=== PATIENT | female | born 1955 | race Caucasian/White ===

== ENCOUNTER 2023-09-11 10:43 | Emergency (ER) | payer MEDICARE, OTHER, SELFPAY ==
[2023-09-11 10:45] VITALS: BP 154/102
--- NOTE | 2023-09-11 12:28 | ED.GENMED ---
History of Present Illness
General
Chief Complaint: Fall
Source: patient
Exam Limitations: none
Time Seen by Provider: 09/11/23 11:33
Nursing documentation reviewed up to this point in time: agreed with
Travel History
Have you had any contact with someone who has COVID-19?: No
Do you have any symptoms of coronavirus? Fever > 100 degrees, chills, cough, shortness of breath, sore throat, loss of taste or smell, muscle aches, or headache?: No
History of Present Illness
History of Present Illness:
Patient is a 68-year-old female who presents here for evaluation. On starting 4 days ago she describes mechanical trip and fall in the garage. She however does not remember the exact fall. Her son caught on camera and reports she got up after the
initial fall but then fell right back again. She does remember hitting her face at some point. She was assisted up by family was having difficulty remembering things. She was having right shoulder pain and was going to see orthopedics today but
came to the ER today for evaluation of all symptoms. She complains of mild headache feels a little foggy denies any nausea vomiting. She complains of bruising to her face worse on the left side at times she reports mild anterior chest soreness
when she lays back but she denies any shortness of breath.
Past History
Past History
ED Past Medical History: GERD, HTN and Psychiatric (a/d)
ED Past Surgical History: Bowel resection and Gynecological
Social History
Tobacco: Non-smoker
Personal:
Living: with family
Review of Systems
Review of Systems
Allergies reviewed?: Yes
All Other Systems: ROS reviewed and negative except as documented in HPI and ROS
Constitutional: Reports no symptoms
EENT: Reports no symptoms
Respiratory: Reports no symptoms
Cardiac: Reports no symptoms
ABD/GI: Reports no symptoms
Musculoskeletal: Reports other (right shoulder pain)
Skin: Reports no symptoms
Neurological: Reports headache
Hematologic/Lymphatic: Reports no symptoms
Psychiatric: Reports no symptoms
Phy Exam
General Physical Exam
General Presentation: no apparent distress
General age: appears stated age
General Skin: warm and dry
General Habitus: normal
General Mental: alert
General Hydration: appears well hydrated
ENT Exam
ENT Exam: EOMI
Eye Exam
Eye Exam: PERRL and EOMI
Eye Exam General: PERRL: bilateral and EOM intact: bilateral
Pupil Exam: Bilateral: round and reactive
Cardiovascular Exam
Cardiovascular Exam: regular rate/rhythm, no murmur and normal peripheral pulses
Pulmonary Exam
Pulmonary Exam: lungs clear and no respiratory distress
Neurological Exam
Neurological Exam: alert and oriented x3
Musculoskeletal Exam
Musculoskeletal Exam: full ROM and other (+ ecchymosis to face around nose and left eye )
Skin Exam
Skin Exam: normal color and warm/dry
Psychiatric Exam
Psychiatric Exam: normal mood/affect
Course
Orders/Labs/Results
Orders:
Orders
09/11/23 12:27
CT Facial Bones W/o Iv Contras Urgent
Comment:
Reason For Exam: trauma
CT Head W/o Iv Contrast Urgent
Comment:
Reason For Exam: trauma
09/11/23 12:28
Chest [CR Chest - 2 Views ] Urgent
Comment:
Reason For Exam: trauma
Shoulder, Right, Trauma [CR Shoulder, Trauma - Right] Urgent
Comment:
Reason For Exam: trauma
09/11/23 14:48
Sling Right-Treatment ONCE
Vital Signs
Initial and Last Documented VS:
Initial Vital Signs
Temp Pulse Resp BP Pulse Ox
98.0 F 72 18 154/102 98
09/11/23 10:45 09/11/23 10:45 09/11/23 10:45 09/11/23 10:45 09/11/23 10:45
Last Documented Vital Signs
Temp Pulse Resp BP Pulse Ox
98.0 F 85 20 120/85 100
09/11/23 10:45 09/11/23 15:03 09/11/23 13:37 09/11/23 15:03 09/11/23 13:37
MDM/Problems Addressed
Differential Diagnosis Includes:
Not limited to head injury intracranial hemorrhage, shoulder sprain versus fracture fracture facial bone versus contusion
MDM/Problems Addressed:
Symptoms are consistent with contusions /shoulder sprain strain.
no acute findings on imaging including CAT scan head and facial bones
*Radiology
Radiology exam reviewed: radiology read reviewed
*Critical Care Note
Total Time (30-74mins, 75-104mins- exclusive of procedures): Not Applicable
ED Attending Note
-
Portions of this chart may have been created with voice recognition software.� Occasional wrong word or��sound alike� substitutions may have occurred due to the inherent limitations of voice recognition software.
Discharge Plan
Departure
Patient Disposition: Home (Routine Discharge)
Date of Disposition: 09/11/23
Time of Disposition: 14:48
Patient with high blood pressure during this ER visit?: Yes
Condition: Fair
Covid-19: Not Applicable
Discharge Problem:
Right shoulder strain, Head injury, facial contusion
Instructions: Head Injury in Adults (DC), Contusion (DC), Shoulder Pain ED
Prescriptions:
No Action
esomeprazole magnesium [Nexium] 40 MG capsule,delayed release(DR/EC)
40 mg PO DAILY
losartan [Cozaar] 25 MG tablet
25 mg PO DAILY
Lactobacillus acidophilus [Acidophilus] 1 CAP capsule
1 cap PO DAILY
azithromycin 250 MG tablet
250 mg PO DAILY
promethazine-codeine 5 ML syrup
5 ml PO Q4HPRN PRN (Reason: cough)
escitalopram oxalate 10 MG tablet
10 mg PO HS
prednisone 10 MG tablet
10 mg PO .TAPER Qty: 30 0RF
Rx Instructions:
Take 40mg daily x3days, 30mg daily x3days,
20mg daily x3days, 10mg daily x3days.
hydrocodone-homatropine [Hycodan (with homatropine)] 5 ML syrup
5 ml PO Q4HPRN PRN (Reason: cough) Qty: 120 0RF
methylprednisolone [Medrol (Efren)] 4 mg tablets,dose pack
See Rx Instructions .ROUTE .COMPLEX Qty: 21 0RF
Rx Instructions:
orally per package directions
Referrals:
Bryan Adame MD [Family Provider] -
Venu Grant MD [Active] -
Activity Restrictions/Additional Instructions:
Wear sling for support as discussed right shoulder however remove several times a day and do gentle range of motion exercises. You may take ibuprofen every 8 hours for discomfort. Follow-up with orthopedics in the next several days for
reevaluation of shoulder pain. Also as discussed your CAT scan of your head and facial bones were negative.
Return if any worsening of symptoms.
Interventions
Interventions:
*Risk Screen - Suicide Last Done: 09/11/23 10:49
*General Assessment Last Done: 09/11/23 10:49
*Neglect/Abuse Screening Last Done: 09/11/23 10:49
ED- Fall Risk Assessment Last Done: 09/11/23 11:49
*ED COVID-19 Vaccine History Last Done: 09/11/23 10:49
*Nursing Disposition Last Done: 09/11/23 15:03
ED-Musculoskeletal Assessment Last Done: 09/11/23 11:49
ED- Neurological Assessment Last Done: 09/11/23 11:49
ED-Skin Assessment Last Done: 09/11/23 11:49
Discharge Date and Time
Discharge Date/Time: 09/11/23 15:04
Print Language: [id number]
[2023-09-11 13:37] VITALS: BP 142/79
[2023-09-11 15:02] VITALS: BP 120/85
[2023-09-11 15:03] VITALS: BP 120/85
== END 2023-09-11 15:04 | disposition home or self-care (01) ==
LOC: EMR 10:43
PROVIDERS: EMERGENCY PHYSICIAN Emergency Medicine; FAMILY PHYSICIAN Internal Medicine Geriatric Medicine
DX: S00.83XA Contusion of other part of head, initial encounter (principal); S46.011A Strain of muscle(s) and tendon(s) of the rotator cuff of right shoulder, initial encounter; W01.0XXA Fall on same level from slipping, tripping and stumbling without subsequent striking against object, initial encounter; I10 Essential (primary) hypertension
CPT/HCPCS: 99284; 70450; 70486; 71046; 73030

== ENCOUNTER → 2023-10-03 16:12 | Outpatient (REF) | payer MEDICARE, OTHER, SELFPAY | LOC: MRI 3T 16:12 | PROVIDERS: ATTENDING PHYSICIAN Orthopaedic Surgery; FAMILY PHYSICIAN Internal Medicine Geriatric Medicine | DX: M25.511 Pain in right shoulder (principal) | CPT/HCPCS: 73221 ==

== ENCOUNTER → 2023-12-12 13:06 | Outpatient (REF) | payer MEDICARE, OTHER, SELFPAY | LOC: RAD 13:06 | PROVIDERS: ATTENDING PHYSICIAN Internal Medicine Critical Care Medicine; FAMILY PHYSICIAN Internal Medicine Geriatric Medicine | DX: R05.3 Chronic cough (principal) | CPT/HCPCS: 71046 ==

== ENCOUNTER 2024-10-12 06:18 | Day surgery (SDC) | payer MEDICARE, OTHER, SELFPAY | END 2024-10-12 13:09 | disposition home or self-care (01) | LOC: GI 06:18 | PROVIDERS: ATTENDING PHYSICIAN Internal Medicine Gastroenterology | DX: Z12.11 Encounter for screening for malignant neoplasm of colon (principal); K31.7 Polyp of stomach and duodenum; K57.30 Diverticulosis of large intestine without perforation or abscess without bleeding; K64.8 Other hemorrhoids; Z98.0 Intestinal bypass and anastomosis status; R12 Heartburn | CPT/HCPCS: 43239; G0121; 88305 ==

== ENCOUNTER → 2025-02-09 13:18 | Outpatient (REF) | payer MEDICARE, SELFPAY ==
--- NOTE | 2025-02-09 15:25 | CARDSERVLU ---
Stress Echocardiogram with Lumason completed after protocol screening completed. Allergies verified.
Patent IV site: _new start 22P LAC____
IV site flushed with 0.9% NaCl pre and post administration.
Diluted bolus method utilized to enhance visualization of ventricular ferris.
Total volume given: __5.0__ mL
pt here for stress echo with image enhancing agent.
site dcd at completion of test
Patient tolerated all procedures well without complications.
== END ==
LOC: RCS 13:18
PROVIDERS: ATTENDING PHYSICIAN Internal Medicine; FAMILY PHYSICIAN Internal Medicine Geriatric Medicine
DX: R06.09 Other forms of dyspnea (principal); I10 Essential (primary) hypertension
CPT/HCPCS: 93017; 93350; Q9950

== ENCOUNTER → 2025-02-11 11:22 | Outpatient (REF) | payer MEDICARE, SELFPAY | LOC: HWRCS 11:22 | PROVIDERS: ATTENDING PHYSICIAN Internal Medicine; FAMILY PHYSICIAN Internal Medicine Geriatric Medicine | DX: R06.09 Other forms of dyspnea (principal); I10 Essential (primary) hypertension | CPT/HCPCS: 93306 ==